=== PATIENT | male | born 1955 | race Caucasian/White ===

== ENCOUNTER 2017-07-11 11:07 | Emergency (ER) | payer BC, OTHER ==
[~2017-07-11] VITALS: Ht 160 cm; Wt 61.7 kg
--- NOTE | 2017-07-11 12:40 | NUR ---
Dr Dennis made patient aware of test results. Will be DC home.
--- NOTE | 2017-07-11 12:45 | NUR ---
Patient discharged to home in stable conditon. Written and verbal after care instructions given. Patient verbalizes understanding of instructions.
[2017-07-11 12:46] VITALS: BP 144/85
== END 2017-07-11 12:48 | disposition home or self-care (01) ==
LOC: ER 11:07
DX: J40 Bronchitis, not specified as acute or chronic (principal)
CPT/HCPCS: 71010; A4663

== ENCOUNTER 2021-09-06 10:13 | Emergency (ER) | payer BC, OTHER ==
[~2021-09-06] VITALS: Ht 160 cm; Wt 64.9 kg
--- NOTE | 2021-09-06 10:40 | NUR ---
DR Geronimo at the bedside for MSE.
--- NOTE | 2021-09-06 11:06 | NUR ---
All the ordered swabs collected and taken to LAB.
[2021-09-06 11:56] VITALS: BP 124/74
--- NOTE | 2021-09-06 11:56 | NUR ---
Patient discharged to home in stable condition. Written and verbal after care instructions given. Patient verbalizes understanding of instructions. Stressed follow up or return to ER for worsening s/s.
== END 2021-09-06 11:57 | disposition home or self-care (01) ==
LOC: ER 10:13
DX: J02.9 Acute pharyngitis, unspecified (principal); Z20.822 Contact with and (suspected) exposure to COVID-19; R21 Rash and other nonspecific skin eruption; R05.9 Cough, unspecified
CPT/HCPCS: 86403; 87070; 87426; 99283; U0003; A4663

== ENCOUNTER 2022-02-06 12:25 | Emergency (ER) | payer BC, OTHER ==
[~2022-02-06] VITALS: Ht 160 cm; Wt 64.9 kg
[2022-02-06] MEDS ORDERED: AMOX500T2 PO (14:14)
--- NOTE | 2022-02-06 14:24 | NUR ---
PT SEEN AND EVALUATED BY DR AGUILA.
--- NOTE | 2022-02-06 14:25 | NUR ---
DISCHARGE INSTRUCTIONS GIVEN BY DR AGUILA; ALETHEA IN STABLE CONDITION.
[2022-02-07] MEDS ORDERED: AMOX500T2 PO (10:41)
== END 2022-02-06 14:26 | disposition home or self-care (01) ==
LOC: ER 12:35
DX: J02.0 Streptococcal pharyngitis (principal)
CPT/HCPCS: A4663